=== PATIENT | female | born 1965 | race Caucasian/White ===

== ENCOUNTER 2021-11-26 15:46 | Emergency (ER) | payer BC, SELFPAY ==
[2021-11-26] VITALS (14 sets, daily range): BP systolic 138–164; BP diastolic 79–89; PULSE 59–88; RESP 13–21; TEMP 36.8; O2SAT 94–100
--- NOTE | 2021-11-26 16:02 | ED.GENADULT ---
HPI - General Adult General Chief complaint: Allergic Reaction Stated complaint: Allergic reaction Time Seen by Provider: 11/26/21 15:50 Source: RN notes reviewed History of Present Illness HPI narrative: Patient presents emergency department via EMS for an allergic reaction. Patient states she was eating a hibachi grill today. 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 States that they had cooked shrimp on the grill and she had not eaten shrimp within the made her chicken following this on the same grill states that she was eating the chicken when she began to feel nauseous and felt like she was having some mild shortness of breath and could not swallow. That time she got outside and EMS was called. When EMS arrived the patient had an episode of emesis she states she is feeling better at this time. She denies any fevers or chills chest pain any current shortness of breath or any other symptoms patient was given 4 Zofran by EMS Related Data Home Medications Medication Instructions Recorded Confirmed albuterol sulfate 90 mcg/actuation 1 puff inhalation Q4H PRN 06/19/21 06/19/21 aerosol inhaler (ProAir HFA) cetirizine 10 mg capsule (Zyrtec) 10 mg PO DAILY PRN 06/19/21 06/19/21 fluticasone propionate 50 1 spray intranasal DAILY 06/19/21 06/19/21 mcg/actuation nasal spray,suspension levothyroxine 125 mcg capsule 125 mcg PO DAILY 06/19/21 06/19/21 metoprolol tartrate 100 mg tablet 100 mg PO BID 06/19/21 06/19/21 multivitamin 1 tablet PO DAILY 06/19/21 06/19/21 polyethylene glycol 3350 17 17 g PO DAILY 06/19/21 06/19/21 gram/dose oral powder (Miralax) vitamin D3 125 mcg (5,000 1 tablet PO DAILY 06/19/21 06/19/21 unit)-folic acid 1 mg tablet Allergies Allergy/AdvReac Type Severity Reaction Status Date / Time shellfish derived Allergy Anaphylaxis Verified 11/26/21 15:55 Review of Systems Review of Systems: Gen.: Denies fevers or chills ENT: Denies congestion Respiratory: Reports shortness of breath earlier now resolved CV: Denies chest pain or palpitations GI: Denies abdominal pain reports nausea vomiting earlier now resolved Musculoskeletal: Denies back pain or muscle pain Neuro: Denies numbness, tingling, weakness or focal weakness Skin: Denies rash Except as documented, all other systems reviewed and negative [facility] Past Medical History Medical History Anemia Asthma Constipation GERD (gastroesophageal reflux disease) Heart disease History of cardiac monitoring (09/02/15) reveal LINQ pvc monitor implanted Hypertension Thyroid disease Surgical History Surgical History (Updated 06/19/21 @ 09:13 by Neo Francois MD) H/O right heart catheterization (12/02/15) History of gynecological procedure (06/03/13) EMB / benign History of gynecological procedure (~06/03/89) colpo / BX History of total abdominal hysterectomy 03/24/2015 Hx of ovarian cystectomy (~06/03/89) Hx of ovarian cystectomy (~06/03/87) x 2 Family History Family History (Updated 06/16/21 @ 12:55 by Luly Junior [facility]) Mother Breast cancer Other Asthma Cerebrovascular accident Family history of Alzheimer's disease Family history of alcoholism Family history of anemia Family history of arthritis Family history of attention deficit hyperactivity disorder (ADHD) Family history of cardiovascular disease Family history of chronic obstructive pulmonary disease Family history of glaucoma Family history of lung disease Family history of obesity Social History Social History Smoking status: Former smoker Alcohol intake: never Substance use: never Substance use type: does not use Additional living arrangements comments: brother and mother live with pt 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
[2021-11-26] MEDS: diphenhydrAMINE HCl INJ 50 MG/ML VIAL 25 MG IV PUSH (16:10)
[2021-11-26] MEDS: methylPREDNISolone SOD SUCC 125 MG VIAL IV PUSH (16:10)
[2021-11-26] MEDS: FAMOTIDINE 20 MG/2 ML VIAL IV PUSH (16:10)
== END 2021-11-26 18:57 | disposition home or self-care (01) ==
PROVIDERS: Emergency Provider Emergency Medicine
DX: T78.1XXA Other adverse food reactions, not elsewhere classified, initial encounter (principal); R11.0 Nausea; R06.02 Shortness of breath; R09.89 Other specified symptoms and signs involving the circulatory and respiratory systems; R11.10 Vomiting, unspecified; I11.9 Hypertensive heart disease without heart failure; J45.909 Unspecified asthma, uncomplicated; K21.9 Gastro-esophageal reflux disease without esophagitis; Z86.2 Personal history of diseases of the blood and blood-forming organs and certain disorders involving the immune mechanism; E07.9 Disorder of thyroid, unspecified; Z90.710 Acquired absence of both cervix and uterus; Z87.891 Personal history of nicotine dependence
CPT/HCPCS: 96374; 96375; 99284; J1200; J2930